=== PATIENT | female | born 1980 | race Caucasian/White ===

== ENCOUNTER 2017-04-16 12:15 | Emergency (ER) | payer MEDICAID ==
[~2017-04-16] VITALS: Ht 170.2 cm; Wt 150.0 kg
[~2017-04-16 12:15] MED LIST: EXCETAB30 PO; PRED50 PO
[2017-04-16 12:18] VITALS: BP 163/85; PULSE 90; RESP 16; TEMP 98.5; O2SAT 97
--- NOTE | 2017-04-16 12:33 | PD ---
HPI Chief Complaint: Skin Problem Time Seen by Provider: 12:33 Travel History International Travel<30 days: No Contact w/Intl Traveler<30days: No Traveled to known affect area: No History of Present Illness HPI 36-year-old female presents to the emergency Department with question of infected insect bites. Patient states she was camping over the weekend last week which she was bitten by multiple insects. Patient has now developed small pimple-like lesions at the site of the insect bites. She has no fever, chills, or other symptoms. No previous history of MRSA in the past. She has no known drug allergies other than to wanted and Lortab. PFSH Past Medical History Cardiovascular Problems: Yes Diminished Hearing: No Hypertension: Yes Kidney Stones: Yes Musculoskeletal: Yes Neurologic: Yes Respiratory: No Immunizations Current: Yes Migraines: Yes ?: Not : 3 Para: 2 : 1 Past Surgical History Cholecystectomy: Yes Other Surgery: Yes (RECONSTRUCTED UMBILICUS DUE TO INFECTIONS.) Social History Alcohol Use: No Tobacco Use: Yes (09/24 PPD) Substance Use: No Allergies-Medications (Allergen,Severity, Reaction): Coded Allergies: Dilaudid (Verified Allergy, Intermediate, ITCHING, 04/16/17) GIVEN DILAUDID IN ED STARTED ITCHING Lortab (Verified Allergy, Intermediate, HEADACHE, 04/16/17) Reported Meds & Prescriptions Reported Meds & Active Scripts Active Bactroban Topical (Mupirocin) 22 Gm Cream 1 Applic TOPICAL BID Bactrim DS (Sulfamethoxazole-Trimethoprim) 800-160 Mg Tab 1 Tab PO BID Reported Excedrin Migraine Caplet (Aspirin/Acetaminophen/Caffeine) 1 Each Tablet 2 Tab PO DIRECTED Review of Systems General / Constitutional: No: Fever Eyes: No: Visual changes HENT: No: Headaches Cardiovascular: No: Chest Pain or Discomfort Respiratory: No: Shortness of Breath Gastrointestinal: No: Abdominal Pain Genitourinary: No: Dysuria Musculoskeletal: No: Pain Skin: No Rash Neurologic: No: Weakness Psychiatric: No: Depression Endocrine: No: Polydipsia Hematologic/Lymphatic: No: Easy Bruising Physical Exam Narrative GENERAL: Moderately obese female in no acute distress. SKIN: Warm and dry. Normal color. Normal turgor. Patient has multiple insect bites to the posterior inner thighs, several of which have small raised pus filled vesicles consistent with probable MRSA. There is no sign of deep abscess. No lymphangitis or streaking. HEAD: Atraumatic. Normocephalic. EYES: Pupils equal and round. No scleral icterus. No injection or drainage. ENT: No nasal bleeding or discharge. Mucous membranes pink and moist. Pharynx is clear. Airway is patent. NECK: Trachea midline. Supple, nontender. CARDIOVASCULAR: Regular rate and rhythm. RESPIRATORY: No accessory muscle use. Clear to auscultation. Breath sounds equal bilaterally. MUSCULOSKELETAL: Extremities without clubbing, cyanosis, or edema. No obvious deformities. NEUROLOGICAL: Awake and alert. No obvious cranial nerve deficits. Motor grossly within normal limits. Five out of 5 muscle strength in the arms and legs. Normal speech. PSYCHIATRIC: Appropriate mood and affect; insight and judgment normal. Data Data Last Documented VS Vital Signs Date Time Temp Pulse Resp B/P Pulse Ox O2 Delivery O2 Flow Rate FiO2 04/16/17 12:18 98.5 90 16 163/85 97 MDM Medical Decision Making Medical Screen Exam Complete: Yes Emergency Medical Condition: Yes Differential Diagnosis Insect bites. Cellulitis. MRSA. Narrative Course Patient is medically stable at time of exam. No signs of abscess or noted this time. Wound culture is obtained and sent to the lab. Patient will be treated with Bactroban ointment twice a day 7 days. Patient's also given Bactrim DS 1 tablet twice a day 7 days. Patient is to follow-up with her primary care physician as needed. Diagnosis Primary Impression: Insect bite, infected Qualified Code: W57.XXXA - Insect bite, infected, initial encounter Referrals: Primary Care Physician Patient Instructions: General Instructions Additional Instructions: No signs of abscess or noted this time. Wound culture is obtained and sent to the lab. Patient will be treated with Bactroban ointment twice a day 7 days. Patient's also given Bactrim DS 1 tablet twice a day 7 days. Patient is to follow-up with her primary care physician as needed. Med/Other Pt SpecificInfo: Prescription(s) given Scripts Mupirocin Topical (Bactroban Topical)22 Gm Cream1 Applic TOPICAL BID #1 TUBE Prov:Travis Barrios MD 04/16/17 Sulfamethoxazole-Trimethoprim (Bactrim DS)800-160 Mg Tab1 Tab PO BID #14 TAB Prov:Travis Barrios MD 04/16/17 Disposition: 01 DISCHARGE HOME Condition: Stable Brandon Cabrera Apr 16, 2017 12:33
[2017-04-16] MEDS ORDERED: MUPI2%T TOPICAL (12:50)
[2017-04-16] MEDS ORDERED: BACT800T5 PO (12:50)
== END 2017-04-16 13:07 | disposition home or self-care (01) ==
LOC: PHEFT 12:15
DX: S70.369A Insect bite (nonvenomous), unspecified thigh, initial encounter (principal); B95.62 Methicillin resistant Staphylococcus aureus infection as the cause of diseases classified elsewhere; W57.XXXA Bitten or stung by nonvenomous insect and other nonvenomous arthropods, initial encounter
CPT/HCPCS: 86403; 87070; 87186; 99284